=== PATIENT | male | born 1975 | race Caucasian/White ===

== ENCOUNTER 2016-08-02 08:59 | Outpatient (CLI) | payer OTHER ==
--- NOTE | 2016-08-02 10:38 | DIAGNOSTIC IMAGING REPORT ---
PROCEDURE: US ABDOMEN ULTRASOUND-COMPLETE INDICATION: TRANSAMINITIS TECHNIQUE: Santoro scale and color Doppler sonographic images of the abdomen were obtained without comparison. COMPARISON: None. FINDINGS: The liver is mildly enlarged and demonstrates increased echogenicity. No mass or intrahepatic biliary dilatation. The gallbladder is without stones but there is a 6 mm polyp. The wall is normal thickness measuring 2.3 mm No pericholecystic fluid or Al sign. The extrahepatic common duct is normal measuring 4.4 mm The visualized pancreas is not well seen The abdominal aorta is normal in its course and caliber. The retrohepatic inferior vena cava is patent. There is appropriate hepatopetal flow in the portal vein. The right kidney measures 9.4 cm in length. The left kidney measures 10.8 cm in length. Both kidneys demonstrate normal morphology and cortical thickness without hydronephrosis, cyst, solid mass, or shadowing calculus. Color Doppler imaging demonstrates normal blood flow in each kidney. The spleen is normal in size measuring 12.7 cm in length. There is no perihepatic or perisplenic ascites. IMPRESSION: 1. Fatty liver
== END 2016-08-02 23:00 ==
LOC: US SRH 08:59
DX: K76.0 Fatty (change of) liver, not elsewhere classified (principal)